=== PATIENT | male | born 1965 | race American Indian/Alaskan Native ===

== ENCOUNTER 2018-06-27 13:55 | Emergency (ER) | payer MEDICARE, OTHER ==
[2018-06-27 14:12] VITALS: BMI 46.5
[2018-06-27 14:18] VITALS: RESP 18; TEMP 98.6
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
--- NOTE | 2018-06-27 15:18 | RAD ---
Date of service: 06/27/2018 HISTORY: elevated potass COMPARISON: 04/01/2016 FINDINGS: LUNGS: No active pulmonary disease. PLEURA: No significant pleural effusion identified, no pneumothorax apparent. CARDIOVASCULAR: Normal. OSSEOUS STRUCTURES: No significant abnormalities. VISUALIZED UPPER ABDOMEN: Normal. OTHER FINDINGS: None. IMPRESSION: No active disease.
[2018-06-27 16:21] LABS: BASO # 0.01 K/mm3 (0.0-2.0); BASO % 0.2 % (0.0-3.0); EOS # 0.3 (0.0-0.7); EOS % 7.4 % (1.5-5.0); GRAN # 2.55 (1.4-6.5); GRAN % 57.3 % (50.0-68.0); HEMOGLOBIN 10.4 g/dL (14.0-18.0); LYMPH # 1.2 (1.2-3.4); MEAN CELL VOLUME 87.7 fl (80.0-105.0); MEAN CORPUSCULAR HEMOGLOBIN 28.5 pg (25.0-35.0); MEAN CORPUSCULAR HGB CONC 32.5 g/dl (31.0-37.0); MEAN PLATELET VOLUME 8.5 fl (7.0-11.0); MONO # 0.4 (0.1-0.6); MONO % 8.1 % (1.0-6.0); RBC 3.65 10^6/uL (3.5-6.1); RED CELL DISTRIBUTION WIDTH 15.7 % (11.5-14.5); WHITE BLOOD COUNT 4.5 10^3/ul (4.5-11.0)
[2018-06-27 16:40] LABS: ALB/GLOB RATIO 1.3 (1.1-1.8); ALBUMIN 4.4 g/dL (3.0-4.8); CALCIUM 9.3 mg/dL (8.4-10.5)
[2018-06-27] MEDS ORDERED: Albuterol 0.083% Inhal Sol (2.5 mg/3 mL) UD INH STA (16:48)
[2018-06-27] MEDS ORDERED: Sodium Bicarbonate (8.4%) 50 Meq Syringe IVP ONE (16:48)
[2018-06-27] MEDS ORDERED: Dextrose 50% SYRINGE Inj (50 ml) IVP STA (16:48)
[2018-06-27] MEDS ORDERED: Sod Polystyrene Sulf 15 gm/60 ml Susp PO STA (16:53)
--- NOTE | 2018-06-27 17:49 | CARD ---
APPROVED REPORT Date of service: 06/27/2018 EKG Measurement Heart [id number] CT [id number] <Conclusion> Normal sinus rhythm Cannot rule out Anterior infarct, age undetermined Abnormal ECG
[2018-06-27 18:27] VITALS: BP 114/70; PULSE 74; O2SAT 96
== END 2018-06-27 18:53 | disposition home or self-care (01) ==
LOC: ED 13:55
DX: E87.5 Hyperkalemia (principal); I12.9 Hypertensive chronic kidney disease with stage 1 through stage 4 chronic kidney disease, or unspecified chronic kidney disease; E11.22 Type 2 diabetes mellitus with diabetic chronic kidney disease; N18.9 Chronic kidney disease, unspecified; Z99.2 Dependence on renal dialysis